=== PATIENT | male | born 1990 | race African-American/Black ===

== ENCOUNTER 2021-12-21 01:03 | Inpatient (IN) | payer MEDICAID, OTHER ==
[~2021-12-21] VITALS: Ht 182.9 cm; Wt 58.6 kg
[2021-12-21] VITALS (44 sets, daily range): BP systolic 67–149; BP diastolic 29–97
[2021-12-21] MEDS ORDERED: SODIUM CHLORIDE 0.9% 1,000 ML IV ONE (01:15)
[2021-12-21] MEDS ORDERED: NALOXONE HCL 1 MG/ML 2ML VIAL IV ONE ×2 (01:15)
[2021-12-21 01:21] LABS: BASOPHILS % 0.6 % (0.0-2.0); EOSINOPHILS % 3.7 % (0.0-5.0); HEMATOCRIT. 38.3 % (42.0-52.0); LYMPHOCYTES % 65.6 % (20.0-50.0); MEAN CORPUSCULAR HEMOGLOBIN 31.2 pg (28.0-32.0); MEAN CORPUSCULAR VOLUME 92.2 fL (80.0-94.0); MEAN PLATELET VOLUME 7.4 fl (7.4-10.4); MONOCYTES % 8.8 % (2.0-8.0); NEUTROPHILS % 21.3 % (40.0-76.0); PLATELET 207 x1000/uL (130-400); RED BLOOD CELL COUNT 4.16 mill/uL (4.7-6.1); RED CELL DISTRIBUTION WIDTH 13.5 % (11.6-14.6)
[2021-12-21 01:26] LABS: CHLORIDE 108 mEq/L (98-107)
[2021-12-21] MEDS ORDERED: SUCCINYLCHOLINE CHLORIDE 200MG/10ML IV ONE ×2 (01:30→08:31)
[2021-12-21] MEDS ORDERED: ATROPINE SULFATE 0.4MG/ML VIAL IV ONE (01:30)
[2021-12-21] MEDS ORDERED: ETOMIDATE 2MG/ML 10ML VIAL IV ONE ×2 (01:30→08:31)
[2021-12-21] MEDS ORDERED: FENTANYL 2500MCG/250ML PMX 250 ML IV PRN (01:30)
[2021-12-21 01:34] LABS: ETHANOL BLOOD < 10 mg/dL
[2021-12-21] MEDS ORDERED: KCL 20MEQ/100ML PREMIX 100 ML IV ONE (01:45)
[2021-12-21 03:18] LABS: BG CARBOXYHEMOGLOBIN 0.8 % (0.5-1.5); BG DEOXYHEMOGLOBIN 0.3 % (0.0-5.0); BG FRACTION INSPIRED OXYGEN 100; BG HCO3 ACT 24.9 mmol/L (22.0-26.0); BG METHEMOGLOBIN 0.3 % (0.0-1.5); BG OXYGEN SATURATION 99.7 % (92.0-98.5); BG OXYHEMOGLOBIN 98.6 % (94.0-97.0); BG PCO2 45.9 mmHg (35.0-45.0); BG PH 7.352 (7.350-7.450); BG PO2 > 602.7 mmHg (75.0-100.0); BG SAMPLE SITE RIGHT RADIAL; BG TOTAL HEMOGLOBIN 13.4 g/dL (12.0-18.0); BG TOTAL RESPIRATORY RATE 14 b/min; BG VENT MODE VENT - AC
[2021-12-21] MEDS: MIDAZOLAM 100MG/100ML PREMIX IV PRN ×2 (04:46→05:01)
[2021-12-21 05:56] LABS: CLARITY URINE CLEAR (CLEAR); COLOR URINE YELLOW (YELLOW); KETONES URINE 1+ (NEGATIVE); LEUKOCYTE ESTERASE URINE TRACE (NEGATIVE); NITRITE URINE NEGATIVE (NEGATIVE); OCCULT BLOOD URINE 2+ (NEGATIVE); PH URINE 6.5 (4.5-8.0); PROTEIN URINE NEGATIVE (NEGATIVE); SPECIFIC GRAVITY URINE 1.019 (1.005-1.030)
[2021-12-21 06:14] LABS: *AMPHETAMINES SCREEN URINE PRESUMTIVE POSITIVE (NEGATIVE); *BARBITURATES SCREEN URINE NEGATIVE (NEGATIVE); *BENZODIAZEPINES SCREEN URINE PRESUMTIVE POSITIVE (NEGATIVE); *COCAINE SCREEN URINE NEGATIVE (NEGATIVE); CANNABINOID URINE SCREEN PRESUMTIVE POSITIVE (NEGATIVE); METHADONE URINE SCREEN NEGATIVE (NEGATIVE); OPIATES URINE SCREEN NEGATIVE (NEGATIVE); PHENCYCLIDINE URINE SCREEN NEGATIVE (NEGATIVE)
[2021-12-21] MEDS ORDERED: ATROPINE SULFATE 1MG/10ML SYR ONE (08:31)
[2021-12-21] MEDS ORDERED: ONDANSETRON HCL 4MG/2ML INJ IV PRN (11:00)
[2021-12-21] MEDS ORDERED: ACETAMINOPHEN 325MG TABLET PO PRN (11:00)
[2021-12-21] MEDS ORDERED: FENTANYL 2500MCG/250ML PMX 250 ML IV ONE (12:45)
[2021-12-21] MEDS ORDERED: MIDAZOLAM HCL 100 MG in SODIUM CHLORIDE 0.9% 80 ML IV PRN (12:45)
[2021-12-21] MEDS ORDERED: FENTANYL CITRATE 2,500 MCG in SODIUM CHLORIDE 0.9% 200 ML IV PRN (13:00)
[2021-12-21] MEDS: DEXT 5%/0.45% NACL 1000ML 1,000 ML IV SCH (13:09)
[2021-12-21] MEDS: PANTOPRAZOLE SODIUM 40 MG/VIAL IV SCH (13:10)
[2021-12-21] MEDS ORDERED: ALBUTEROL (0.083%) 2.5MG/3ML NEB HHN SCH (13:15)
[2021-12-22] VITALS (62 sets, daily range): BP systolic 62–152; BP diastolic 34–100
[2021-12-22] MEDS: DEXT 5%/0.45% NACL 1000ML 1,000 ML IV SCH (01:30)
[2021-12-22 06:05] LABS: HEMATOCRIT 42.4 % (42.0-52.0); HEMOGLOBIN 14.3 g/dL (14.0-18.0); MEAN CORPUSCULAR HEMOGLOBIN 30.9 pg (28.0-32.0); MEAN CORPUSCULAR VOLUME 91.9 fL (80.0-94.0); PLATELET 198 x1000/uL (130-400); RED BLOOD CELL COUNT 4.61 mill/uL (4.7-6.1); RED CELL DISTRIBUTION WIDTH 13.7 % (11.6-14.6)
[2021-12-22 06:15] LABS: CHLORIDE 105 mEq/L (98-107)
[2021-12-22 08:06] LABS: BG BASE EXCESS -0.4 mmol/L (-2.0-2.0); BG CARBOXYHEMOGLOBIN 0.4 % (0.5-1.5); BG DEOXYHEMOGLOBIN 0.9 % (0.0-5.0); BG FRACTION INSPIRED OXYGEN 40; BG HCO3 ACT 23.2 mmol/L (22.0-26.0); BG METHEMOGLOBIN 0.1 % (0.0-1.5); BG OXYGEN SATURATION 99.1 % (92.0-98.5); BG OXYHEMOGLOBIN 98.6 % (94.0-97.0); BG PCO2 34.9 mmHg (35.0-45.0); BG PO2 156.9 mmHg (75.0-100.0); BG SAMPLE SITE RIGHT RADIAL; BG TOTAL HEMOGLOBIN 14.9 g/dL (12.0-18.0)
[2021-12-22] MEDS: PANTOPRAZOLE SODIUM 40 MG/VIAL IV SCH (08:47)
[2021-12-22] MEDS ORDERED: MAGNESIUM OXIDE 400MG TABLET PO SCH (09:30)
[2021-12-22] MEDS ORDERED: POTASSIUM CHLORIDE 20MEQ TABLET SR PO NR (09:30)
[2021-12-22] MEDS ORDERED: ZOLPIDEM TARTRATE 5MG TABLET PO PRN (19:00)
== END 2021-12-22 19:45 | disposition left against medical advice (07) | DRG 812 ==
LOC: ER 01:03 → EDBD 02:29 → MICUNO 02:29 → ENRESERV 07:03
PROVIDERS: ADMIT Internal Medicine; ATTEND Internal Medicine
PROC: 5A1945Z Respiratory Ventilation, 24-96 Consecutive Hours (ICD-10-PCS; principal; 2021-12-21)
PROC: 0BH17EZ Insertion of Endotracheal Airway into Trachea, Via Natural or Artificial Opening (ICD-10-PCS; 2021-12-21)
DX: T40.2X1A Poisoning by other opioids, accidental (unintentional), initial encounter (principal); J96.02 Acute respiratory failure with hypercapnia; G93.41 Metabolic encephalopathy; E44.1 Mild protein-calorie malnutrition; E87.6 Hypokalemia; D72.819 Decreased white blood cell count, unspecified; F90.9 Attention-deficit hyperactivity disorder, unspecified type; F12.90 Cannabis use, unspecified, uncomplicated; F19.10 Other psychoactive substance abuse, uncomplicated; Z68.1 Body mass index [BMI] 19.9 or less, adult
CPT/HCPCS: 31500; 36415; 36600; 71045; 80048; 80053; 80305; 80307; 80320; 80329; 81003; 82375; 82805; 83735; 85025; 85027; 87070; 93005; 94002; 94003; 99291; C9113; J0330; J0461; J2250; J2310; J3010; J3480; J3490; J7030; J7050; A4315; G0480